=== PATIENT | female | born 1995 | race Asian ===

== ENCOUNTER 2022-11-06 20:54 | Emergency (ER) | payer OTHER ==
[~2022-11-06] VITALS: Ht 157.5 cm; Wt 63.5 kg
[2022-11-06 23:23] VITALS: BP 132/72; TEMP 98.2
== END 2022-11-06 23:23 | disposition home or self-care (01) ==
LOC: ED 20:54
PROC: 2W3LX1Z Immobilization of Right Lower Extremity using Splint (ICD-10-PCS; principal; 2022-11-06)
DX: S83.91XA Sprain of unspecified site of right knee, initial encounter (principal); X58.XXXA Exposure to other specified factors, initial encounter
CPT/HCPCS: 99283